=== PATIENT | female | born 1965 | race African-American/Black ===

== ENCOUNTER 2017-05-08 12:40 | Emergency (ER) | payer MEDICAID ==
[~2017-05-08] VITALS: Ht 157.5 cm; Wt 75.0 kg
[2017-05-08] MEDS ORDERED: KETOROLAC 60MG/2ML VIAL IM ONE (19:30)
[2017-05-08 21:35] LABS: CLARITY URINE CLEAR (CLEAR); COLOR URINE YELLOW (YELLOW); GLUCOSE URINE NEGATIVE (NEGATIVE); KETONES URINE NEGATIVE (NEGATIVE); LEUKOCYTE ESTERASE URINE NEGATIVE (NEGATIVE); NITRITE URINE NEGATIVE (NEGATIVE); OCCULT BLOOD URINE NEGATIVE (NEGATIVE); PROTEIN URINE NEGATIVE (NEGATIVE); SPECIFIC GRAVITY URINE 1.014 (1.005-1.030); UROBILINOGEN URINE 0.2 E.U./dL (0.2-1.0)
[2017-05-08 22:39] VITALS: BP 150/99
== END 2017-05-08 22:39 | disposition home or self-care (01) ==
LOC: ER 14:38
DX: S43.402A Unspecified sprain of left shoulder joint, initial encounter (principal); W10.9XXA Fall (on) (from) unspecified stairs and steps, initial encounter; Y93.89 Activity, other specified; Y92.89 Other specified places as the place of occurrence of the external cause; R03.0 Elevated blood-pressure reading, without diagnosis of hypertension; F17.210 Nicotine dependence, cigarettes, uncomplicated; Z91.010 Allergy to peanuts
CPT/HCPCS: 73030; 81003; 81025; 96372; 99285; J1885

== ENCOUNTER 2018-02-03 00:42 | Emergency (ER) | payer MEDICAID ==
[~2018-02-03] VITALS: Ht 157.5 cm; Wt 79.0 kg
[2018-02-03 01:51] VITALS: BP 158/88
[2018-02-03] MEDS ORDERED: GABAPENTIN 300MG CAPSULE PO ONE (02:00)
[2018-02-03 02:34] LABS: EOSINOPHILS % 2.2 % (0.0-5.0); HEMATOCRIT. 42.4 % (36.0-48.0); LYMPHOCYTES % 30.8 % (20.0-50.0); MEAN CORPUSCULAR HEMOGLOBIN 27.7 pg (28.0-32.0); MEAN CORPUSCULAR VOLUME 83.6 fL (81.0-99.0); MEAN PLATELET VOLUME 7.9 fl (7.4-10.4); PLATELET 718 x1000/uL (130-400); RED BLOOD CELL COUNT 5.07 mill/uL (4.2-5.4); RED CELL DISTRIBUTION WIDTH 16.8 % (11.6-14.6)
[2018-02-03 02:39] LABS: CHLORIDE 105 mEq/L (98-107)
== END 2018-02-03 03:35 | disposition home or self-care (01) ==
LOC: ER 00:42
DX: R20.2 Paresthesia of skin (principal); K21.9 Gastro-esophageal reflux disease without esophagitis; G89.29 Other chronic pain; M54.5 Low back pain; F17.200 Nicotine dependence, unspecified, uncomplicated; Z91.010 Allergy to peanuts
CPT/HCPCS: 36415; 80053; 85025; 99291

== ENCOUNTER 2018-05-15 08:23 | Emergency (ER) | payer MEDICAID ==
[~2018-05-15] VITALS: Ht 157.5 cm; Wt 79.0 kg
[2018-05-15] MEDS ORDERED: CLON0.2T PO (08:39)
[2018-05-15] MEDS ORDERED: AMLO10TA80 PO (08:39)
[2018-05-15] MEDS ORDERED: DIPHENHYDRAMINE 50MG/ML VIAL IV ONE (10:15)
[2018-05-15] MEDS ORDERED: METOCLOPRAMIDE HCL 10MG/2ML VIAL IV ONE (10:15)
[2018-05-15] MEDS ORDERED: MECLIZINE 25MG TABLET PO ONE (10:15)
[2018-05-15 10:42] LABS: BASOPHILS % 0.7 % (0.0-2.0); EOSINOPHILS % 1.9 % (0.0-5.0); HEMATOCRIT. 41.1 % (36.0-48.0); HEMOGLOBIN. 13.6 g/dL (12.0-16.0); LYMPHOCYTES % 30.4 % (20.0-50.0); MEAN CORPUSCULAR HEMOGLOBIN 27.9 pg (28.0-32.0); MEAN PLATELET VOLUME 8.2 fl (7.4-10.4); MONOCYTES % 5.7 % (2.0-8.0); NEUTROPHILS % 61.3 % (40.0-76.0); PLATELET 698 x1000/uL (130-400); RED BLOOD CELL COUNT 4.89 mill/uL (4.2-5.4); RED CELL DISTRIBUTION WIDTH 17.4 % (11.6-14.6)
[2018-05-15 10:51] LABS: PROTHROMBIN TIME 10.5 sec (9.1-11.1)
[2018-05-15 10:52] LABS: CHLORIDE 106 mEq/L (98-107); ETHANOL BLOOD < 10 mg/dL
[2018-05-15 12:31] VITALS: BP 158/77
== END 2018-05-15 12:33 | disposition home or self-care (01) ==
LOC: ER 08:23
DX: R42 Dizziness and giddiness (principal); R51 Headache; I10 Essential (primary) hypertension; F17.200 Nicotine dependence, unspecified, uncomplicated; Z91.010 Allergy to peanuts
CPT/HCPCS: 36415; 70450; 71045; 80053; 84484; 85025; 85610; 93005; 96374; 96375; 99285; G0482; J1200; J2765; J8597

== ENCOUNTER 2018-08-27 22:17 | Emergency (ER) | payer MEDICAID ==
[~2018-08-27] VITALS: Ht 157.5 cm; Wt 79.0 kg
[~2018-08-27 22:17] MED LIST: AMLO10TA80 PO; CLON0.2T PO
[2018-08-28] MEDS ORDERED: MAGNESIUM/ALUMINUM HYDROXIDE/SIMETHICONE 30ML UDC PO STA (06:33)
[2018-08-28] MEDS ORDERED: VISCOUS LIDOCAINE 2% 15 ML UDC PO STA (06:33)
[2018-08-28 07:20] LABS: BASOPHILS % 0.9 % (0.0-2.0); EOSINOPHILS % 1.7 % (0.0-5.0); HEMATOCRIT. 40.6 % (36.0-48.0); HEMOGLOBIN. 13.1 g/dL (12.0-16.0); LYMPHOCYTES % 36.1 % (20.0-50.0); MEAN CORPUSCULAR HEMOGLOBIN 27.3 pg (28.0-32.0); MEAN CORPUSCULAR VOLUME 84.7 fL (81.0-99.0); MEAN PLATELET VOLUME 8.4 fl (7.4-10.4); MONOCYTES % 5.1 % (2.0-8.0); NEUTROPHILS % 56.2 % (40.0-76.0); PLATELET 694 x1000/uL (130-400); RED CELL DISTRIBUTION WIDTH 17.5 % (11.6-14.6)
[2018-08-28 07:59] LABS: CHLORIDE 107 mEq/L (98-107)
[2018-08-28 11:15] VITALS: BP 132/83
== END 2018-08-28 11:19 | disposition home or self-care (01) ==
LOC: ER 22:17
DX: M79.605 Pain in left leg (principal); I10 Essential (primary) hypertension; E78.00 Pure hypercholesterolemia, unspecified; F12.10 Cannabis abuse, uncomplicated; I25.10 Atherosclerotic heart disease of native coronary artery without angina pectoris; Z91.010 Allergy to peanuts
CPT/HCPCS: 36415; 71045; 73552; 83880; 84484; 93005; 93970; 99284

== ENCOUNTER 2018-09-08 13:36 | Emergency (ER) | payer MEDICAID ==
[~2018-09-08] VITALS: Ht 157.5 cm; Wt 79.0 kg
[2018-09-08 13:47] VITALS: BP 145/93
== END 2018-09-08 15:40 | disposition home or self-care (01) ==
LOC: ER 13:36
DX: L03.213 Periorbital cellulitis (principal); L25.9 Unspecified contact dermatitis, unspecified cause; I10 Essential (primary) hypertension; E78.00 Pure hypercholesterolemia, unspecified
CPT/HCPCS: 99283

== ENCOUNTER 2018-09-16 11:52 | Emergency (ER) | payer MEDICAID ==
[~2018-09-16] VITALS: Ht 157.5 cm; Wt 79.0 kg
[2018-09-16] MEDS ORDERED: VISCOUS LIDOCAINE 2% 15 ML UDC PO ONE ×2 (13:00→14:45)
[2018-09-16] MEDS ORDERED: ASPIRIN 81MG TABLET PO ONE (13:00)
[2018-09-16] MEDS ORDERED: MAGNESIUM/ALUMINUM HYDROXIDE/SIMETHICONE 30ML UDC PO ONE ×2 (13:00→14:45)
[2018-09-16] MEDS ORDERED: CLONIDINE 0.2MG TABLET PO ONE (14:45)
[2018-09-16] MEDS ORDERED: HYDROXYZINE 25MG TABLET PO ONE (14:45)
[2018-09-16 15:29] LABS: BASOPHILS % 1.2 % (0.0-2.0); EOSINOPHILS % 1.7 % (0.0-5.0); HEMATOCRIT. 42.8 % (36.0-48.0); HEMOGLOBIN. 14.1 g/dL (12.0-16.0); LYMPHOCYTES % 33.3 % (20.0-50.0); MEAN CORPUSCULAR HEMOGLOBIN 28.2 pg (28.0-32.0); MEAN CORPUSCULAR VOLUME 85.3 fL (81.0-99.0); MEAN PLATELET VOLUME 8.3 fl (7.4-10.4); MONOCYTES % 5.5 % (2.0-8.0); NEUTROPHILS % 58.3 % (40.0-76.0); PLATELET 706 x1000/uL (130-400); RED BLOOD CELL COUNT 5.02 mill/uL (4.2-5.4); RED CELL DISTRIBUTION WIDTH 17.8 % (11.6-14.6)
[2018-09-16 15:43] LABS: CHLORIDE 102 mEq/L (98-107)
[2018-09-16 18:54] VITALS: BP 110/64
== END 2018-09-16 18:55 | disposition home or self-care (01) ==
LOC: ER 12:21
DX: R07.89 Other chest pain (principal); F17.200 Nicotine dependence, unspecified, uncomplicated; E78.00 Pure hypercholesterolemia, unspecified; I10 Essential (primary) hypertension; T21.41XA Corrosion of unspecified degree of chest wall, initial encounter; T32.0 Corrosions involving less than 10% of body surface; Y93.89 Activity, other specified; Y92.89 Other specified places as the place of occurrence of the external cause; Y99.8 Other external cause status; Z91.010 Allergy to peanuts
CPT/HCPCS: 36415; 71045; 83880; 84484; 93005; 99284

== ENCOUNTER 2019-03-07 15:16 | Emergency (ER) | payer MEDICAID ==
[~2019-03-07] VITALS: Ht 157.5 cm; Wt 76.0 kg
[2019-03-07] MEDS ORDERED: IBUPROFEN 600MG TABLET PO ONE (16:15)
[2019-03-07 17:56] VITALS: BP 138/91
== END 2019-03-07 17:59 | disposition home or self-care (01) ==
LOC: ER 15:16
DX: J02.9 Acute pharyngitis, unspecified (principal); E78.00 Pure hypercholesterolemia, unspecified; I10 Essential (primary) hypertension; F17.210 Nicotine dependence, cigarettes, uncomplicated; Z91.010 Allergy to peanuts
CPT/HCPCS: 87070; 87430; 99283

== ENCOUNTER 2019-04-10 13:04 | Emergency (ER) | payer MEDICAID ==
[~2019-04-10] VITALS: Ht 157.5 cm; Wt 76.0 kg
[2019-04-10] MEDS ORDERED: HYDROCODONE/ACETAMINOPHEN 5/325MG TABLET PO STA (15:41)
[2019-04-10 16:51] VITALS: BP 145/89
== END 2019-04-10 16:51 | disposition home or self-care (01) ==
LOC: ER 13:04
DX: M54.9 Dorsalgia, unspecified (principal); M54.31 Sciatica, right side; I10 Essential (primary) hypertension; E78.00 Pure hypercholesterolemia, unspecified; F17.200 Nicotine dependence, unspecified, uncomplicated; Z91.010 Allergy to peanuts
CPT/HCPCS: 93971; 99284

== ENCOUNTER 2020-01-23 09:27 | Emergency (ER) | payer MEDICAID ==
[~2020-01-23] VITALS: Ht 157.5 cm; Wt 75.0 kg
[2020-01-23 09:39] VITALS: BP 128/84
== END 2020-01-23 10:26 | disposition home or self-care (01) ==
LOC: ER 09:27
DX: R21 Rash and other nonspecific skin eruption (principal); I10 Essential (primary) hypertension; Z91.010 Allergy to peanuts; Z98.890 Other specified postprocedural states
CPT/HCPCS: 99281

== ENCOUNTER 2020-09-14 20:37 | Emergency (ER) | payer MEDICAID ==
[~2020-09-14] VITALS: Ht 157.5 cm; Wt 73.0 kg
[2020-09-14 20:47] VITALS: BP 137/88
[2020-09-14] MEDS ORDERED: PROCHLORPERAZINE 10MG/2ML VIAL IM ONE (21:00)
[2020-09-14] MEDS ORDERED: DIPHENHYDRAMINE 50MG CAPSULE PO ONE (21:00)
[2020-09-14] MEDS ORDERED: ACETAMINOPHEN 325MG TABLET PO ONE (21:00)
[2020-09-14 21:33] LABS: CLARITY URINE CLEAR (CLEAR); COLOR URINE YELLOW (YELLOW); KETONES URINE NEGATIVE (NEGATIVE); LEUKOCYTE ESTERASE URINE 2+ (NEGATIVE); NITRITE URINE NEGATIVE (NEGATIVE); OCCULT BLOOD URINE NEGATIVE (NEGATIVE); PH URINE 5.5 (4.5-8.0); PROTEIN URINE NEGATIVE (NEGATIVE); SPECIFIC GRAVITY URINE 1.011 (1.005-1.030); UROBILINOGEN URINE 0.2 E.U./dL (0.2-1.0)
[2020-09-14] MEDS ORDERED: CEPHALEXIN 250MG CAPSULE PO NR (22:00)
[2020-09-14] MEDS ORDERED: COM10 MT (22:58)
[2020-09-14] MEDS ORDERED: CEPH500C2 MT (22:58)
== END 2020-09-14 23:18 | disposition home or self-care (01) ==
LOC: ER 20:37
DX: G43.909 Migraine, unspecified, not intractable, without status migrainosus (principal); N39.0 Urinary tract infection, site not specified; I10 Essential (primary) hypertension; Z91.010 Allergy to peanuts
CPT/HCPCS: 70450; 81003; 96372; 99284; J0780; Q0163

== ENCOUNTER 2020-12-08 21:13 | Emergency (ER) | payer MEDICAID ==
[~2020-12-08] VITALS: Ht 157.5 cm; Wt 77.0 kg
[~2020-12-08 21:13] MED LIST changes: +CEPH500C2 MT; +COM10 MT
[2020-12-08 21:47] VITALS: BP 159/71
[2020-12-08 22:43] LABS: CLARITY URINE CLEAR (CLEAR); COLOR URINE YELLOW (YELLOW); KETONES URINE NEGATIVE (NEGATIVE); LEUKOCYTE ESTERASE URINE NEGATIVE (NEGATIVE); NITRITE URINE POSITIVE (NEGATIVE); OCCULT BLOOD URINE NEGATIVE (NEGATIVE); PH URINE 5.5 (4.5-8.0); PROTEIN URINE NEGATIVE (NEGATIVE); SPECIFIC GRAVITY URINE 1.019 (1.005-1.030); UROBILINOGEN URINE 0.2 E.U./dL (0.2-1.0)
== END 2020-12-08 23:38 | disposition home or self-care (01) ==
LOC: ER 21:13
DX: N39.0 Urinary tract infection, site not specified (principal); I10 Essential (primary) hypertension; Z91.010 Allergy to peanuts
CPT/HCPCS: 81003; 99283

== ENCOUNTER 2021-03-16 20:41 | Emergency (ER) | payer MEDICAID ==
[~2021-03-16] VITALS: Ht 157.5 cm; Wt 76.0 kg
[2021-03-16 20:51] VITALS: BP 152/80
[2021-03-17 01:48] LABS: CLARITY URINE CLEAR (CLEAR); COLOR URINE YELLOW (YELLOW); KETONES URINE TRACE (NEGATIVE); LEUKOCYTE ESTERASE URINE NEGATIVE (NEGATIVE); NITRITE URINE NEGATIVE (NEGATIVE); OCCULT BLOOD URINE NEGATIVE (NEGATIVE); PROTEIN URINE NEGATIVE (NEGATIVE); SPECIFIC GRAVITY URINE 1.029 (1.005-1.030); UROBILINOGEN URINE 0.2 E.U./dL (0.2-1.0)
[2021-03-17] MEDS ORDERED: CEFTRIAXONE SODIUM 500 MG/VIAL IM ONE (03:30)
[2021-03-17] MEDS ORDERED: DOXYCYCLINE HYCLATE 100MG CAPSULE PO ONE (03:30)
[2021-03-17] MEDS ORDERED: DOXY100C2 MT (03:32)
[2021-03-18 19:06] LABS: NEISSERIA GONORRHOEAE NAA Negative (Negative)
== END 2021-03-17 04:01 | disposition home or self-care (01) ==
LOC: ER 20:41
DX: N76.0 Acute vaginitis (principal); I10 Essential (primary) hypertension; Z91.010 Allergy to peanuts
CPT/HCPCS: 81003; 87210; 87491; 87591; 96372; 99284; J0696; Z7610

== ENCOUNTER 2021-04-30 14:07 | Emergency (ER) | payer MEDICAID ==
[~2021-04-30] VITALS: Ht 157.5 cm; Wt 76.0 kg
[~2021-04-30 14:07] MED LIST changes: +DOXY100C5 MT
[2021-04-30] MEDS ORDERED: CEFTRIAXONE SODIUM 500 MG/VIAL IM ONE (16:45)
[2021-04-30] MEDS ORDERED: METRONIDAZOLE 500MG TABLET PO ONE (16:45)
[2021-04-30] MEDS ORDERED: DOXYCYCLINE HYCLATE 100MG CAPSULE PO ONE (16:45)
[2021-04-30 17:26] LABS: CLARITY URINE CLOUDY (CLEAR); COLOR URINE YELLOW (YELLOW); KETONES URINE NEGATIVE (NEGATIVE); LEUKOCYTE ESTERASE URINE 3+ (NEGATIVE); NITRITE URINE NEGATIVE (NEGATIVE); OCCULT BLOOD URINE NEGATIVE (NEGATIVE); PROTEIN URINE NEGATIVE (NEGATIVE); SPECIFIC GRAVITY URINE 1.017 (1.005-1.030)
[2021-04-30] MEDS ORDERED: DOXY100C5 MT (17:37)
[2021-04-30] MEDS ORDERED: ALBU90AE INH (18:02)
[2021-04-30 18:08] VITALS: BP 132/74
[2021-05-04 09:07] LABS: NEISSERIA GONORRHOEAE NAA Negative (Negative)
== END 2021-04-30 18:08 | disposition home or self-care (01) ==
LOC: ER 14:07
DX: N72 Inflammatory disease of cervix uteri (principal); E78.00 Pure hypercholesterolemia, unspecified; I10 Essential (primary) hypertension; Z91.010 Allergy to peanuts; Z79.899 Other long term (current) drug therapy
CPT/HCPCS: 81003; 87086; 87491; 87591; 96372; 99283; J0696

== ENCOUNTER 2021-09-19 13:11 | Emergency (ER) | payer MEDICAID ==
[~2021-09-19] VITALS: Ht 157.5 cm; Wt 77.0 kg
[~2021-09-19 13:11] MED LIST changes: +ALBU90AE INH
[2021-09-19] MEDS ORDERED: MORPHINE SULFATE 4 MG/ML CPJ (NOT FOR IM USE) IV STA (13:59)
[2021-09-19 14:50] LABS: CLARITY URINE CLEAR (CLEAR); COLOR URINE YELLOW (YELLOW); KETONES URINE TRACE (NEGATIVE); LEUKOCYTE ESTERASE URINE TRACE (NEGATIVE); NITRITE URINE NEGATIVE (NEGATIVE); OCCULT BLOOD URINE NEGATIVE (NEGATIVE); PROTEIN URINE NEGATIVE (NEGATIVE); SPECIFIC GRAVITY URINE 1.029 (1.005-1.030)
[2021-09-19 14:54] LABS: BASOPHILS % 0.6 % (0.0-2.0); EOSINOPHILS % 3.2 % (0.0-5.0); HEMATOCRIT. 43.8 % (36.0-48.0); HEMOGLOBIN. 14.2 g/dL (12.0-16.0); LYMPHOCYTES % 28.4 % (20.0-50.0); MEAN CORPUSCULAR HEMOGLOBIN 27.4 pg (28.0-32.0); MEAN CORPUSCULAR VOLUME 84.3 fL (81.0-99.0); MEAN PLATELET VOLUME 7.9 fl (7.4-10.4); MONOCYTES % 4.5 % (2.0-8.0); NEUTROPHILS % 63.3 % (40.0-76.0); RED CELL DISTRIBUTION WIDTH 16.6 % (11.6-14.6)
[2021-09-19 14:55] LABS: CHLORIDE 108 mEq/L (98-107)
[2021-09-19] MEDS ORDERED: CEPH500C2 MT (15:46)
[2021-09-19 16:24] VITALS: BP 136/74
[2021-09-20 10:08] LABS: PLATELET 1038 x1000/uL (130-400)
== END 2021-09-19 16:25 | disposition home or self-care (01) ==
LOC: ER 13:29
DX: R20.0 Anesthesia of skin (principal); E78.00 Pure hypercholesterolemia, unspecified; I10 Essential (primary) hypertension; G43.909 Migraine, unspecified, not intractable, without status migrainosus; Z87.440 Personal history of urinary (tract) infections; Z79.899 Other long term (current) drug therapy
CPT/HCPCS: 36415; 73630; 80053; 81003; 82962; 83690; 84484; 85025; 93005; 99285; Z7610

== ENCOUNTER 2021-10-08 10:34 | Emergency (ER) | payer MEDICAID ==
[~2021-10-08] VITALS: Ht 157.5 cm; Wt 79.0 kg
[2021-10-08 16:03] LABS: BASOPHILS % 0.8 % (0.0-2.0); EOSINOPHILS % 2.9 % (0.0-5.0); HEMATOCRIT. 44.2 % (36.0-48.0); HEMOGLOBIN. 14.4 g/dL (12.0-16.0); LYMPHOCYTES % 36.2 % (20.0-50.0); MEAN CORPUSCULAR HEMOGLOBIN 27.8 pg (28.0-32.0); MEAN CORPUSCULAR VOLUME 84.9 fL (81.0-99.0); MEAN PLATELET VOLUME 8.1 fl (7.4-10.4); NEUTROPHILS % 55.1 % (40.0-76.0); PLATELET 911 x1000/uL (130-400)
[2021-10-08 16:10] LABS: CHLORIDE 108 mEq/L (98-107)
[2021-10-08 16:37] LABS: CREATINE KINASE 99 IU/L (26-192)
[2021-10-08 18:13] VITALS: BP 154/71
== END 2021-10-08 19:40 | disposition home or self-care (01) ==
LOC: ER 10:34
DX: R07.89 Other chest pain (principal); M79.662 Pain in left lower leg; M79.661 Pain in right lower leg; I10 Essential (primary) hypertension; Z91.010 Allergy to peanuts
CPT/HCPCS: 36415; 71045; 80053; 82550; 83880; 84484; 85025; 85379; 93005; 93970; 99285

== ENCOUNTER 2021-11-25 19:07 | Emergency (ER) | payer MEDICAID ==
[~2021-11-25] VITALS: Ht 157.5 cm; Wt 78.0 kg
[2021-11-25] MEDS ORDERED: LIDOCAINE HCL/EPINEPHRINE 1%-EPI 1:100,000 20 ML VIAL INFIL ONE (21:15)
[2021-11-25 21:45] VITALS: BP 123/62
== END 2021-11-25 21:45 | disposition home or self-care (01) ==
LOC: ER 19:07
DX: A49.02 Methicillin resistant Staphylococcus aureus infection, unspecified site (principal); I10 Essential (primary) hypertension; E78.00 Pure hypercholesterolemia, unspecified; G43.909 Migraine, unspecified, not intractable, without status migrainosus; Z22.322 Carrier or suspected carrier of Methicillin resistant Staphylococcus aureus; Z88.1 Allergy status to other antibiotic agents; Z87.440 Personal history of urinary (tract) infections; Z91.010 Allergy to peanuts; Z98.890 Other specified postprocedural states
CPT/HCPCS: 10060; 99283; Z7610

== ENCOUNTER 2021-12-25 11:06 | Emergency (ER) | payer MEDICAID ==
[~2021-12-25] VITALS: Ht 160 cm; Wt 75.0 kg
[2021-12-25 11:14] VITALS: BP 147/101
== END 2021-12-25 17:28 | disposition left against medical advice (07) ==
LOC: ER 11:35
DX: R07.2 Precordial pain (principal)
CPT/HCPCS: 71045; 93005; 99283

== ENCOUNTER 2023-08-18 07:36 | Emergency (ER) | payer MEDICAID ==
[~2023-08-18] VITALS: Ht 167.6 cm; Wt 68.0 kg
[~2023-08-18 07:36] MED LIST changes: +CETI10CA2 MT; +MED4 MT
[2023-08-18 07:45] VITALS: BP 170/87; PULSE 78; RESP 20; TEMP 98.1; O2SAT 100
[2023-08-18 08:17] LABS: BASOPHILS % 0.8 % (0.0-2.0); EOSINOPHILS % 2.2 % (0.0-5.0); HEMATOCRIT. 41.3 % (36.0-48.0); HEMOGLOBIN. 13.3 g/dL (12.0-16.0); LYMPHOCYTES % 34.5 % (20.0-50.0); MEAN CORPUSCULAR HEMOGLOBIN 29.5 pg (28.0-32.0); MEAN CORPUSCULAR HGB CONC 32.1 g/dL (31.0-37.0); MEAN CORPUSCULAR VOLUME 91.7 fL (81.0-99.0); MEAN PLATELET VOLUME 7.8 fl (7.4-10.4); MONOCYTES % 7.9 % (2.0-8.0); NEUTROPHILS % 54.6 % (40.0-76.0); PLATELET 517 x1000/uL (130-400); RED BLOOD CELL COUNT 4.51 mill/uL (4.2-5.4); RED CELL DISTRIBUTION WIDTH 17.3 % (11.6-14.6); WHITE BLOOD COUNT 4.1 x1000/uL (4.5-11.0)
[2023-08-18 08:40] LABS: ALANINE AMINOTRANSFERASE 20 IU/L (10-49); ALBUMIN 4.2 g/dL (3.2-4.8); ASPARTATE AMINOTRANSFERASE 18 IU/L (<34); BILIRUBIN TOTAL 0.5 mg/dL (0.1-1.0); CALCIUM 9.1 mg/dL (8.7-10.4); CARBON DIOXIDE 28 mEq/L (21-32); CHLORIDE 108 mEq/L (98-107); CREATININE 0.8 mg/dL (0.6-1.0); GLUCOSE 101 mg/dL (70-105); POTASSIUM 3.7 mEq/L (3.5-5.1); PROTEIN TOTAL 7.8 g/dL (6.0-8.3); SODIUM 143 mEq/L (136-145); UREA NITROGEN BLOOD 8 mg/dL (9-23)
[2023-08-18] MEDS ORDERED: MAGNESIUM/ALUMINUM HYDROXIDE/SIMETHICONE 30ML UDC PO STA (09:22)
[2023-08-18] MEDS ORDERED: ONDANSETRON HCL 4MG/2ML INJ IV STA (09:22)
[2023-08-18] MEDS ORDERED: SODIUM CHLORIDE 0.9% 1,000 ML IV ONE (09:30)
[2023-08-18] MEDS ORDERED: PANTOPRAZOLE SODIUM 40 MG/VIAL IV ONE (09:30)
[2023-08-18] MEDS ORDERED: MAG-55 MT (12:07)
== END 2023-08-18 13:58 | disposition home or self-care (01) ==
LOC: ER 07:36
DX: K21.9 Gastro-esophageal reflux disease without esophagitis (principal); K20.90 Esophagitis, unspecified without bleeding; I10 Essential (primary) hypertension; E78.00 Pure hypercholesterolemia, unspecified; J45.909 Unspecified asthma, uncomplicated; Z91.010 Allergy to peanuts; Z88.1 Allergy status to other antibiotic agents; Z98.890 Other specified postprocedural states; Z86.59 Personal history of other mental and behavioral disorders
CPT/HCPCS: 80053; 83690; 85025; 36415; 74176; 96365; 96375; 99285; J2405; C9113; J7030; Z7610 ×3

== ENCOUNTER 2023-11-24 08:21 | Emergency (ER) | payer MEDICAID ==
[~2023-11-24] VITALS: Ht 157.5 cm; Wt 75.9 kg
[~2023-11-24 08:21] MED LIST changes: -COM10 MT; +MAG-55 MT; +PROC10TA65 MT
[2023-11-24 08:30] VITALS: O2SAT 100
[2023-11-24] MEDS ORDERED: CLOT15CR27 TP (08:45)
[2023-11-24] MEDS ORDERED: MUPI15CR11 TP (08:45)
[2023-11-24 09:06] VITALS: BP 127/61; PULSE 60; RESP 18; TEMP 98.5
== END 2023-11-24 09:33 | disposition home or self-care (01) ==
LOC: ER 08:21
DX: L30.4 Erythema intertrigo (principal); J45.909 Unspecified asthma, uncomplicated; E78.00 Pure hypercholesterolemia, unspecified; I10 Essential (primary) hypertension; G43.909 Migraine, unspecified, not intractable, without status migrainosus; Z88.8 Allergy status to other drugs, medicaments and biological substances; Z91.010 Allergy to peanuts
CPT/HCPCS: 99282

== ENCOUNTER 2024-02-17 15:07 | Emergency (ER) | payer MEDICAID ==
[~2024-02-17] VITALS: Ht 167.6 cm; Wt 75.0 kg
[~2024-02-17 15:07] MED LIST changes: +CLOT15CR27 TP; +MUPI15CR11 TP
[2024-02-17 15:11] VITALS: TEMP 98.8; O2SAT 98
[2024-02-17] MEDS ORDERED: GLYC30DR4 EACHEYE (15:26)
[2024-02-17 15:35] VITALS: BP 160/75; PULSE 84; RESP 16
== END 2024-02-17 16:05 | disposition home or self-care (01) ==
LOC: ER 15:07
DX: H11.32 Conjunctival hemorrhage, left eye (principal); J45.909 Unspecified asthma, uncomplicated; E78.00 Pure hypercholesterolemia, unspecified; I10 Essential (primary) hypertension; G43.909 Migraine, unspecified, not intractable, without status migrainosus; I20.9 Angina pectoris, unspecified; Z88.0 Allergy status to penicillin; Z91.010 Allergy to peanuts
CPT/HCPCS: 99283

== ENCOUNTER 2024-09-18 10:47 | Emergency (ER) | payer MEDICAID ==
[~2024-09-18 10:47] MED LIST changes: +GLYC30DR4 EACHEYE; -MED4 MT; +METH4TAB95 MT
[2024-09-18 10:50] VITALS: PULSE 100; RESP 16; O2SAT 100
== END 2024-09-18 11:36 | disposition left against medical advice (07) ==
LOC: ER 10:47
DX: H57.12 Ocular pain, left eye (principal); Z53.21 Procedure and treatment not carried out due to patient leaving prior to being seen by health care provider

== ENCOUNTER 2024-09-18 12:25 | Emergency (ER) | payer MEDICAID ==
[~2024-09-18] VITALS: Ht 167.6 cm; Wt 68.0 kg
[2024-09-18 12:41] VITALS: O2SAT 99
[2024-09-18] MEDS: ACETAMINOPHEN 325MG TABLET PO ONE (14:55)
[2024-09-18] MEDS: FLUORESCEIN SODIUM 1MG/STRIP LEFTEYE ONE (15:09)
[2024-09-18 15:11] VITALS: BP 172/86; PULSE 81; RESP 18; TEMP 37.1; O2SAT 100
== END 2024-09-18 15:21 | disposition home or self-care (01) ==
LOC: ER 12:25
DX: S09.8XXA Other specified injuries of head, initial encounter (principal); M25.561 Pain in right knee; E78.00 Pure hypercholesterolemia, unspecified; I10 Essential (primary) hypertension; J45.909 Unspecified asthma, uncomplicated; Z87.440 Personal history of urinary (tract) infections; Z88.1 Allergy status to other antibiotic agents; W01.0XXA Fall on same level from slipping, tripping and stumbling without subsequent striking against object, initial encounter; Y93.89 Activity, other specified; Y92.89 Other specified places as the place of occurrence of the external cause; Y99.8 Other external cause status
CPT/HCPCS: 70486; 73562; 99284

== ENCOUNTER 2025-01-08 01:56 | Emergency (ER) | payer MEDICAID ==
[~2025-01-08] VITALS: Ht 154.9 cm; Wt 81.3 kg
[2025-01-08 02:01] VITALS: O2SAT 98
[2025-01-08 02:37] LABS: BASOPHILS % 0.6 % (0.0-2.0); DIFFERENTIAL COMMENT 0; EOSINOPHILS % 3.5 % (0.0-5.0); HEMATOCRIT. 42.4 % (36.0-48.0); HEMOGLOBIN. 13.8 g/dL (12.0-16.0); LYMPHOCYTES % 28.7 % (20.0-50.0); MEAN CORPUSCULAR HGB CONC 32.5 g/dL (31.0-37.0); MEAN PLATELET VOLUME 8.2 fl (7.4-10.4); MONOCYTES % 5.5 % (2.0-8.0); NEUTROPHILS % 61.7 % (40.0-76.0); PLATELET 813 x1000/uL (130-400); RED BLOOD CELL COUNT 5.11 mill/uL (4.2-5.4); RED CELL DISTRIBUTION WIDTH 17.6 % (11.6-14.6); WHITE BLOOD COUNT 7.9 x1000/uL (4.5-11.0)
[2025-01-08 02:44] LABS: PARTIAL THROMBOPLASTIN TIME 28.7 sec (23.4-31.0); PROTHROMBIN TIME 10.9 sec (9.6-11.0)
[2025-01-08 02:54] LABS: CHLORIDE 108 mEq/L (98-107); POTASSIUM 3.8 mEq/L (3.5-5.1); SODIUM 143 mEq/L (136-145)
[2025-01-08 02:55] LABS: CALCIUM 9.4 mg/dL (8.7-10.4); CARBON DIOXIDE 26 mEq/L (21-32)
[2025-01-08 03:00] LABS: CREATININE 0.9 mg/dL (0.6-1.0); ETHANOL BLOOD < 10 mg/dL (<10); GLUCOSE 108 mg/dL (70-105); UREA NITROGEN BLOOD 14 mg/dL (9-23)
[2025-01-08 03:01] LABS: TROPONIN I HIGH SENSITIVITY 7 ng/L (3.0-34)
[2025-01-08] MEDS: VISCOUS LIDOCAINE 2% 15 ML UDC MM ONE (03:02)
[2025-01-08] MEDS: MAGNESIUM/ALUMINUM HYDROXIDE/SIMETHICONE 30ML UDC PO ONE (03:03)
[2025-01-08 04:43] LABS: TROPONIN I HIGH SENSITIVITY 6 ng/L (3.0-34)
[2025-01-08] MEDS ORDERED: MAG355OR21 MT (05:09)
[2025-01-08 05:25] VITALS: BP 176/99; PULSE 86; RESP 16; TEMP 36.7; O2SAT 98
== END 2025-01-08 05:37 | disposition home or self-care (01) ==
LOC: ER 01:56
DX: R07.89 Other chest pain (principal); I10 Essential (primary) hypertension; J45.909 Unspecified asthma, uncomplicated; E78.00 Pure hypercholesterolemia, unspecified; K21.00 Gastro-esophageal reflux disease with esophagitis, without bleeding; G43.909 Migraine, unspecified, not intractable, without status migrainosus; Z88.1 Allergy status to other antibiotic agents; Z79.899 Other long term (current) drug therapy
CPT/HCPCS: 80048; 80320; 83880; 85025; 85610; 85730; 84484; 36415; 71045; 93005; 99285; A6449; G0480